=== PATIENT | male | born 1950 | race Caucasian/White ===

== ENCOUNTER 2019-09-05 10:44 | Emergency (ER) | payer MEDICARE ==
[2019-09-05 11:33] LABS: #Basophils 0.1 thou/uL (0.0-0.2); #Eosinphils 0.2 thou/uL (0.0-0.7); #Lymphocytes 1.1 thou/uL (1.20-3.40); #Monocytes 1.5 thou/uL (0.11-0.59); #Neutrophils 9.8 thou/uL (1.40-6.50); %Eosinophils 1.5 % (0.0-10.0); %Lymphocytes 8.7 % (21.0-51.0); %Monocytes 11.9 % (0.0-10.0); Mean Corpuscular HGB CONC 32.7 g/dL (32.0-36.0); Mean Corpuscular Hemoglobin 30.9 pg (27.0-31.0); Mean Corpuscular Volume 94.6 fL (78.0-98.0); Mean Platelet Volume 8.7 fL (7.4-10.4); Platelet Count 211 thou/uL (130-400); RBC Distribution Width 11.4 % (11.5-14.5); Red Blood Cell (RBC) Count 5.18 mill/uL (4.70-6.10); White Blood Cell (WBC) Count 12.7 thou/uL (4.8-10.8)
--- NOTE | 2019-09-05 11:39 | CT ---
CT Brain WO Con: 09/05/2019 11:23 AM CLINICAL HISTORY: Hypertension. COMPARISON: None. FINDINGS: Hemorrhage: None. Ventricular system: Mild ex vacuo dilatation due to parenchymal volume loss. Cerebral parenchyma: Mild chronic ischemic disease of the cerebral white matter. Midline shift: None. Mass: No mass effect. Calvarium: Normal. Visualized Paranasal sinuses: Clear. IMPRESSION: No acute intracranial abnormalities.
[2019-09-05] MEDS ORDERED: Lorazepam 2 MG/ML VIAL ONE (11:40)
--- NOTE | 2019-09-05 11:41 | RAD ---
Exam: Chest one view HISTORY:Hypertension Comparison: None FINDINGS: Lungs: No masses or consolidation. Cardiac silhouette:Accentuated by portable technique Pulmonary vessels: Normal Pleural Spaces: Clear Pneumothorax: None Osseous abnormalities: None of acuity. IMPRESSION: No focal consolidation.
[2019-09-05 11:42] LABS: ALT (SGPT) 39 U/L (8-55); AST (SGOT) 49 U/L (5-34); Albumin 4.4 g/dL (3.4-4.8); Alkaline Phosphatase 85 U/L (40-110); Anion Gap 18 mmol/L (10-20); BUN (Urea Nitrogen) 13 mg/dL (8.4-25.7); Bilirubin, Total 1.1 mg/dL (0.2-1.2); Calc. Creatinine Clearance 0 mL/min (70-130); Calcium 9.3 mg/dL (7.8-10.44); Carbon Dioxide 19 mmol/L (23-31); Chloride 103 mmol/L (98-107); Estimated GFR-MDRD Greater than 90; Glucose 88 mg/dL (80-115); Protein, Total 7.4 g/dL (5.8-8.1); Sodium 136 mmol/L (136-145)
[2019-09-05] MEDS ORDERED: Multivit, Adult Inj 10 ML VIAL ONE ×2 (11:53→11:54)
[2019-09-05] MEDS ORDERED: Thiamine HCl 200 MG/2 ML VIAL ONE (11:55)
[2019-09-05] MEDS ORDERED: Thiamine 100 MG TAB ONE (11:55)
[2019-09-05 12:01] LABS: CKMB 3.8 ng/mL (0-6.6)
[2019-09-05] MEDS ORDERED: Losartan 25 MG TAB ONE (12:10)
[2019-09-05 14:57] LABS: CKMB 3.5 ng/mL (0-6.6)
== END 2019-09-05 14:58 | disposition home or self-care (01) ==
LOC: SCSER 10:44
DX: I10 Essential (primary) hypertension (principal); F41.9 Anxiety disorder, unspecified; E78.00 Pure hypercholesterolemia, unspecified; E78.5 Hyperlipidemia, unspecified; Z86.73 Personal history of transient ischemic attack (TIA), and cerebral infarction without residual deficits; Z79.82 Long term (current) use of aspirin; Z79.899 Other long term (current) drug therapy
CPT/HCPCS: 70450; 71045; 80053; 82553; 84443; 84484; 85025; 93005; 96365; 96366; 96375; J2060; J3411

== ENCOUNTER 2020-01-01 07:54 | Outpatient (CLI) | payer MEDICARE ==
--- NOTE | 2020-01-01 09:23 | ULT ---
ABDOMINAL AORTIC ULTRASOUND: HISTORY: Screening. FINDINGS: No evidence for abdominal aortic aneurysm. There are some atherosclerotic changes. Bifurcation ladonna on is unremarkable. IMPRESSION: No evidence for abdominal aortic aneurysm. Evidence for atherosclerotic vascular disease of the aort a. POS: [facility]
== END 2020-01-01 07:55 | disposition home or self-care (01) ==
LOC: SCSULT 07:54
PROVIDERS: ATTEND Family Medicine Sports Medicine
DX: Z00.00 Encounter for general adult medical examination without abnormal findings (principal); Z13.6 Encounter for screening for cardiovascular disorders; I70.0 Atherosclerosis of aorta
CPT/HCPCS: 76775

== ENCOUNTER 2021-12-08 09:27 | Outpatient (CLI) | payer MEDICARE | END 2021-12-08 09:28 | disposition home or self-care (01) | LOC: RAD 09:27 | PROVIDERS: ATTEND Internal Medicine Critical Care Medicine | DX: R06.00 Dyspnea, unspecified (principal) | CPT/HCPCS: 71046 ==

== ENCOUNTER 2023-02-17 07:48 | Outpatient (CLI) | payer MEDICARE ==
[2023-02-17 10:13] LABS: #Eosinphils 0.5 thou/uL (0.0-0.7); #Monocytes 1.5 thou/uL (0.11-0.59); #Neutrophils 9.9 thou/uL (1.40-6.50); %Basophils 0.3 % (0.0-1.0); %Eosinophils 3.8 % (0.0-10.0); %Lymphocytes 14.1 % (21.0-51.0); %Monocytes 10.7 % (0.0-10.0); %Neutrophils 71.2 % (42.0-75.0); Hemoglobin 13.9 g/dL (14.0-18.0); Mean Corpuscular HGB CONC 31.7 g/dL (32.0-36.0); Mean Corpuscular Hemoglobin 30.4 pg (27.0-31.0); Mean Corpuscular Volume 95.8 fl (78.0-98.0); Mean Platelet Volume 8.6 fL (7.4-10.4); Platelet Count 253 10x3/uL (130-400); Red Blood Cell (RBC) Count 4.57 mill/uL (4.70-6.10); White Blood Cell (WBC) Count 13.9 10x3/uL (4.8-10.8)
[2023-02-17 10:19] LABS: ALT (SGPT) 10 U/L (8-55); AST (SGOT) 14 U/L (5-34); Albumin 3.9 g/dL (3.4-4.8); Alkaline Phosphatase 103 U/L (40-110); Anion Gap 15 mmol/L (10-20); BUN (Urea Nitrogen) 11 mg/dL (8.4-25.7); Bilirubin, Total 0.6 mg/dL (0.2-1.2); Calc. Creatinine Clearance 0 mL/min (70-130); Calcium 9.6 mg/dL (7.8-10.44); Carbon Dioxide 23 mmol/L (23-31); Cardiac Risk 3.9 (Less than 4.5); Chloride 104 mmol/L (98-107); Cholesterol 151 mg/dl (< 200 Desired); Estimated GFR 82; Globulin 2.4 g/dL (2.4-3.5); Glucose 99 mg/dL (83-110); HDL Cholesterol 39 mg/dL (>60 Neg Risk); Hemoglobin A1c 5.1 % (4.0-6.0); LDL Cholesterol, Calculated 91 mg/dL; Potassium 3.6 mmol/L (3.5-5.1); Protein, Total 6.3 g/dL (5.8-8.1); Sodium 138 mmol/L (136-145); Triglycerides 105 mg/dL (Less than 150)
[2023-02-17 10:53] LABS: Thyroid Stimulating Hormone 1.2761 uIU/mL (0.35-4.94)
== END 2023-02-17 07:49 | disposition home or self-care (01) ==
LOC: SCSRAD 07:48
PROVIDERS: ATTEND Internal Medicine
DX: I63.9 Cerebral infarction, unspecified (principal); I10 Essential (primary) hypertension; H43.391 Other vitreous opacities, right eye; R91.1 Solitary pulmonary nodule; I48.19 Other persistent atrial fibrillation
CPT/HCPCS: 36415; 71046; 80053; 80061; 82607; 82746; 83036; 84425; 84443; 85025

== ENCOUNTER 2023-02-23 12:31 | Outpatient (CLI) | payer MEDICARE | END 2023-02-23 12:32 | disposition home or self-care (01) | LOC: SCSCT 12:31 | PROVIDERS: ATTEND Internal Medicine | DX: R91.1 Solitary pulmonary nodule (principal) | CPT/HCPCS: 71250 ==

== ENCOUNTER 2023-09-09 16:13 | Outpatient (CLI) | payer MEDICARE | END 2023-09-09 16:14 | disposition home or self-care (01) | LOC: CT 16:13 | PROVIDERS: ATTEND Internal Medicine | DX: S09.90XA Unspecified injury of head, initial encounter (principal); I67.82 Cerebral ischemia; G93.89 Other specified disorders of brain; S00.83XA Contusion of other part of head, initial encounter | CPT/HCPCS: 70450 ==